=== PATIENT | female | born 1975 | race Caucasian/White ===

== ENCOUNTER 2021-11-21 19:12 | Inpatient (IN) | payer OTHER ==
[~2021-11-21] VITALS: Ht 154.9 cm
== END 2021-12-02 13:08 | disposition home or self-care (01) | DRG 331 ==
LOC: ER 19:12 → SURH 11-22 09:35
PROVIDERS: ADMIT Surgery; ATTEND Surgery
PROC: BW2110Z Computerized Tomography (CT Scan) of Abdomen and Pelvis using Low Osmolar Contrast, Unenhanced and Enhanced (ICD-10-PCS; 2021-11-22)
PROC: BW3GY0Z Magnetic Resonance Imaging (MRI) of Pelvic Region using Other Contrast, Unenhanced and Enhanced (ICD-10-PCS; 2021-11-22)
PROC: 05HY33Z Insertion of Infusion Device into Upper Vein, Percutaneous Approach (ICD-10-PCS; 2021-11-23)
PROC: 0D1L0Z4 Bypass Transverse Colon to Cutaneous, Open Approach (ICD-10-PCS; principal; 2021-11-23 13:00)
DX: K56.699 Other intestinal obstruction unspecified as to partial versus complete obstruction (principal); Z20.822 Contact with and (suspected) exposure to COVID-19
CPT/HCPCS: 72198

== ENCOUNTER 2021-12-22 08:39 | Outpatient (CLI) | payer OTHER | END 2021-12-22 08:52 | disposition home or self-care (01) | LOC: MAMO-SONO 08:39 | PROVIDERS: ATTEND Obstetrics & Gynecology Gynecology | DX: N60.11 Diffuse cystic mastopathy of right breast (principal); N60.12 Diffuse cystic mastopathy of left breast ==

== ENCOUNTER 2022-01-14 07:19 | Outpatient (CLI) | payer OTHER | END 2022-01-14 18:00 | disposition home or self-care (01) | LOC: LAB 07:19 | PROVIDERS: ATTEND Surgery | DX: K56.5 Intestinal adhesions [bands] with obstruction (postinfection) (principal); C18.7 Malignant neoplasm of sigmoid colon; Z93.3 Colostomy status ==

== ENCOUNTER → 2022-01-16 06:11 | Outpatient (CLI) | payer OTHER | END | disposition home or self-care (01) | LOC: LAB 06:11 → EKG 06:11 | PROVIDERS: ATTEND Surgery | DX: I10 Essential (primary) hypertension (principal) ==

== ENCOUNTER 2022-02-23 17:47 | Inpatient (IN) | payer OTHER ==
[~2022-02-23] VITALS: Ht 154.9 cm; Wt 61.2 kg
--- NOTE | 2022-02-23 17:56 | NUR ---
PTE ENVIADA POR LA ALENA. ASHLI CRISTOBAL POR DIARREAS Y DESHIDRATACION. PTE FEBRIL AL MOMENTO DEL TRIAGE.
--- NOTE | 2022-02-23 18:21 | NUR ---
PACIENTE EVALUADO POR EL QUIEN ORDENA TRATAMIENTO MEDICO.SE ORIENTA PACIENTE SOBRE EL MISMO ESTA REFIERE ENTENDER. RN BACH REALIZA MUESTRAS BAJO MEDIDAS ASEPTICAS Y ADMINISTRA MEDICAMENTOS GILBERTO ORDEN MEDICA. SE HACE ENTREGA DE ENVASE PARA FECAL LEUKOCYTE.
[2022-02-24] MEDS ORDERED: ABATINEX680 MG (08:02)
[2022-02-24] MEDS ORDERED: ESTRADIOL1 EAC6 (08:02)
== END 2022-02-28 14:03 | disposition home or self-care (01) | DRG 373 ==
LOC: ER 17:47 → SURH 22:27
PROVIDERS: ADMIT Surgery; ATTEND Surgery
PROC: BW21ZZZ Computerized Tomography (CT Scan) of Abdomen and Pelvis (ICD-10-PCS; principal; 2022-02-23)
DX: A04.72 Enterocolitis due to Clostridium difficile, not specified as recurrent (principal); E86.0 Dehydration; E87.8 Other disorders of electrolyte and fluid balance, not elsewhere classified; Z20.822 Contact with and (suspected) exposure to COVID-19

== ENCOUNTER 2022-07-12 05:32 | Day surgery (SDC) | payer OTHER ==
[~2022-07-12] VITALS: Ht 154.9 cm; Wt 44.0 kg
[~2022-07-12 05:32] MED LIST: ABATINEX680 MG; ESTR; ESTRADIOL1 EAC6; ESTROGEN; HIBICLENS118 ML TOP; INTESTINEX680 M1 PO
[2022-07-12] MEDS ORDERED: ULTRAM50 MG PO (08:22)
== END 2022-07-12 10:40 | disposition home or self-care (01) ==
LOC: CIR.AMB 05:32
PROVIDERS: ATTEND Surgery
DX: C18.7 Malignant neoplasm of sigmoid colon (principal); Z20.822 Contact with and (suspected) exposure to COVID-19; Z92.21 Personal history of antineoplastic chemotherapy; Z92.3 Personal history of irradiation

== ENCOUNTER → 2022-07-18 06:21 | Outpatient (CLI) | payer OTHER ==
[~2022-07-18 06:21] MED LIST changes: +ULTRAM50 MG PO
== END | disposition home or self-care (01) ==
LOC: LAB 06:21
PROVIDERS: ATTEND Internal Medicine
DX: C19 Malignant neoplasm of rectosigmoid junction (principal)

== ENCOUNTER → 2022-08-07 06:35 | Outpatient (CLI) | payer OTHER | END | disposition home or self-care (01) | LOC: LAB 06:35 | PROVIDERS: ATTEND Internal Medicine | DX: C20 Malignant neoplasm of rectum (principal) ==

== ENCOUNTER → 2022-08-11 07:06 | Outpatient (CLI) | payer OTHER | END | disposition home or self-care (01) | LOC: LAB 07:06 | PROVIDERS: ATTEND Internal Medicine | DX: D70.1 Agranulocytosis secondary to cancer chemotherapy (principal) ==

== ENCOUNTER → 2022-08-19 06:00 | Outpatient (CLI) | payer OTHER | END | disposition home or self-care (01) | LOC: LAB 06:00 | PROVIDERS: ATTEND Internal Medicine | DX: C20 Malignant neoplasm of rectum (principal); D70.1 Agranulocytosis secondary to cancer chemotherapy ==

== ENCOUNTER 2022-09-08 07:14 | Outpatient (CLI) | payer OTHER | END 2022-09-08 07:17 | disposition home or self-care (01) | LOC: LAB 07:14 | PROVIDERS: ATTEND Internal Medicine | DX: C20 Malignant neoplasm of rectum (principal); D70.1 Agranulocytosis secondary to cancer chemotherapy ==

== ENCOUNTER 2022-10-03 07:20 | Outpatient (CLI) | payer OTHER | END 2022-10-03 07:23 | disposition home or self-care (01) | LOC: LAB 07:20 | PROVIDERS: ATTEND Internal Medicine | DX: C20 Malignant neoplasm of rectum (principal) ==

== ENCOUNTER 2022-10-27 08:32 | Outpatient (CLI) | payer OTHER | END 2022-10-27 08:43 | disposition home or self-care (01) | LOC: TOM 08:32 | PROVIDERS: ATTEND Internal Medicine | DX: C20 Malignant neoplasm of rectum (principal) ==

== ENCOUNTER 2022-10-30 06:54 | Outpatient (CLI) | payer OTHER | END 2022-10-30 06:55 | disposition home or self-care (01) | LOC: LAB 06:54 | PROVIDERS: ATTEND Internal Medicine | DX: C20 Malignant neoplasm of rectum (principal) ==

== ENCOUNTER 2023-01-17 13:53 | Outpatient (CLI) | payer OTHER | END 2023-01-17 14:03 | disposition home or self-care (01) | LOC: MAMO-SONO 13:53 | PROVIDERS: ATTEND Obstetrics & Gynecology Gynecology | DX: N60.11 Diffuse cystic mastopathy of right breast (principal); N60.12 Diffuse cystic mastopathy of left breast ==

== ENCOUNTER → 2023-01-30 13:14 | Outpatient (CLI) | payer OTHER | END | disposition home or self-care (01) | LOC: LAB 01-29 10:23 | PROVIDERS: ATTEND Obstetrics & Gynecology Gynecology | DX: D64.9 Anemia, unspecified (principal); E03.9 Hypothyroidism, unspecified; E55.9 Vitamin D deficiency, unspecified; E78.5 Hyperlipidemia, unspecified; N39.0 Urinary tract infection, site not specified; Z20.822 Contact with and (suspected) exposure to COVID-19; Z03.818 Encounter for observation for suspected exposure to other biological agents ruled out; C18.7 Malignant neoplasm of sigmoid colon; K56.50 Intestinal adhesions [bands], unspecified as to partial versus complete obstruction ==

== ENCOUNTER 2023-02-28 13:11 | Outpatient (CLI) | payer OTHER | END 2023-02-28 13:12 | disposition home or self-care (01) | LOC: SONOGRAMA 13:11 | PROVIDERS: ATTEND Otolaryngology | DX: R22.1 Localized swelling, mass and lump, neck (principal) ==

== ENCOUNTER 2023-04-18 09:57 | Outpatient (CLI) | payer OTHER | END 2023-04-18 10:47 | disposition home or self-care (01) | LOC: LAB 09:57 | PROVIDERS: ATTEND Surgery | DX: A63.8 Other specified predominantly sexually transmitted diseases (principal) ==

== ENCOUNTER 2023-11-30 08:19 | Outpatient (CLI) | payer OTHER ==
[2023-11-30 09:37] LABS: HEMATOCRIT 39.4 % (36.0-45.00); HEMOGLOBIN 13.1 g/dL (12.0-15.00); MEAN CELL VOLUME 82.5 fL (80.00-100.00); MEAN CORPUSCULAR HEMOGLOBIN 27.5 pg (27.00-32.0); MEAN CORPUSCULAR HGB CONC 33.3 g/dl (32.0-36.0); PLATELET COUNT 201 K/uL (150-450); RED BLOOD COUNT 4.77 M/uL (4.00-6.00); RED CELL DISTRIBUTION WIDTH 13.8 % (11.5-14.5)
[2023-11-30 10:20] LABS: ALBUMIN 3.7 gm/dL (3.4-5.0); BILIRUBIN TOTAL 0.28 mg/dL (0.3-1.2); CALCIUM 8.8 mg/dL (8.5-10.1); CHOL HDL RATIO 5.6 (0-5.0); CREATININE SERUM 0.48 mg/dL (0.55-1.02); GFR 139.23; GLOBULINA 3.7 G/DL (2.4-3.5); POTASSIUM 4.42 mEq/L (3.5-5.1); TOTAL PROTEIN 7.4 gm/dL (6.4-8.2)
== END 2023-11-30 08:20 | disposition home or self-care (01) ==
LOC: LAB 08:19
PROVIDERS: ATTEND Internal Medicine
DX: C20 Malignant neoplasm of rectum (principal); E78.00 Pure hypercholesterolemia, unspecified; N18.9 Chronic kidney disease, unspecified

== ENCOUNTER 2023-12-04 07:08 | Outpatient (CLI) | payer OTHER | END 2023-12-04 08:50 | disposition home or self-care (01) | LOC: TOM 07:08 | PROVIDERS: ATTEND Internal Medicine | DX: C20 Malignant neoplasm of rectum (principal) ==

== ENCOUNTER 2024-01-21 07:23 | Outpatient (CLI) | payer OTHER | END 2024-01-21 07:32 | disposition home or self-care (01) | LOC: MAMO-SONO 07:23 | PROVIDERS: ATTEND Obstetrics & Gynecology Gynecology | DX: N60.11 Diffuse cystic mastopathy of right breast (principal); N60.12 Diffuse cystic mastopathy of left breast ==

== ENCOUNTER 2024-02-05 08:00 | Outpatient (CLI) | payer OTHER ==
[2024-02-05 07:55] LABS: HEMATOCRIT 39.5 % (36.0-45.00); HEMOGLOBIN 13.4 g/dL (12.0-15.00); MEAN CELL VOLUME 82.5 fL (80.00-100.00); MEAN CORPUSCULAR HEMOGLOBIN 27.9 pg (27.00-32.0); MEAN CORPUSCULAR HGB CONC 33.8 g/dl (32.0-36.0); PLATELET COUNT 225 K/uL (150-450); RED BLOOD COUNT 4.79 M/uL (4.00-6.00); RED CELL DISTRIBUTION WIDTH 14.2 % (11.5-14.5)
[2024-02-05 08:53] LABS: ALBUMIN 3.7 gm/dL (3.4-5.0); BILIRUBIN TOTAL 0.4 mg/dL (0.3-1.2); CALCIUM 9.2 mg/dL (8.5-10.1); CREATININE SERUM 0.53 mg/dL (0.55-1.02); GFR 124.19; GLOBULINA 3.9 G/DL (2.4-3.5); POTASSIUM 4.02 mEq/L (3.5-5.1); TOTAL PROTEIN 7.6 gm/dL (6.4-8.2)
== END 2024-02-05 14:31 | disposition home or self-care (01) ==
LOC: LAB 08:00
PROVIDERS: ATTEND Surgery
DX: Z85.048 Personal history of other malignant neoplasm of rectum, rectosigmoid junction, and anus (principal)